=== PATIENT | female | born 1940 | race Caucasian/White ===

== ENCOUNTER 2017-07-11 08:35 | Day surgery (SDC) | payer MEDICARE, BC ==
[2017-07-11] MEDS ORDERED: fentaNYL 100 MCG/2 ML SDV ONE (09:03)
[2017-07-11] MEDS ORDERED: Propofol 200 MG/20 ML SDV ONE (09:03)
[2017-07-11] MEDS ORDERED: Lactated Ringers 1,000 ML IV SCH (09:15)
--- NOTE | 2017-07-11 10:38 | OR ---
DATE OF PROCEDURE: 07/11/2017 PREOPERATIVE DIAGNOSES: Upper abdominal discomfort, bloating, and weight loss. POSTOPERATIVE DIAGNOSES: Upper abdominal discomfort, bloating, weight loss, and mild gastritis. PROCEDURES: Esophagogastroduodenoscopy with antral biopsies for CLOtest, sent for pathology to look for Helicobacter pylori. SURGEON: Maico Archibald MD. ANESTHESIA: IV anesthesia with monitored anesthesia care. INDICATION: This 77-year-old white female is referred for upper endoscopy because of bloating, weight loss, and upper abdominal discomfort. She does note also some reflux-type symptoms, but that does not seem to be her main concern. I counseled her for upper endoscopy with possible biopsy including risks and alternatives, and she gave her informed consent to proceed. DESCRIPTION OF PROCEDURE: The patient was placed in the left lateral decubitus position. IV anesthesia was administered by the Anesthesia Service. Time-out was held. The flexible video Olympus upper endoscope was passed through her mouth, down her esophagus, and into her stomach. There was some scattered old blood present. This was very minimal. Etiology of this is unknown. The scope was easily passed through the pylorus and into the duodenum, reaching its third portion. The scope was then slowly withdrawn, examining the mucosa throughout. The duodenal mucosa appeared unremarkable. The scope was brought up to the pylorus. There was some mild erythematous streaking emanating from the pylorus consistent with mild gastritis. We obtained antral biopsies for CLOtest and sent tissue for pathology to look for Helicobacter pylori. The scope was retroflexed. The proximal stomach, otherwise, appeared unremarkable. The scope was straightened and brought up through the GE junction. This appeared unremarkable. The scope was then brought up through the unremarkable- appearing esophagus and was removed. She tolerated the procedure well. Maico Archibald MD /[id number] MTDD
[2017-07-11 10:41] VITALS: BP 122/70
== END 2017-07-11 10:50 | disposition home or self-care (01) ==
LOC: JP.SDS 08:35
PROVIDERS: ATTEND Surgery
DX: K29.50 Unspecified chronic gastritis without bleeding (principal); Z88.2 Allergy status to sulfonamides; Z88.6 Allergy status to analgesic agent
CPT/HCPCS: 43239; 87081; J2704; J3010; J7120; 88305

== ENCOUNTER 2017-08-27 12:39 | Day surgery (SDC) | payer MEDICARE, BC ==
[~2017-08-27 12:39] MED LIST: Lactated Ringers 1,000 ML IV SCH
[2017-08-27] MEDS ORDERED: Midazolam 1 MG/ML 2 ML SDV ONE (12:58)
[2017-08-27] MEDS ORDERED: Propofol 200 MG/20 ML SDV ONE (12:58)
[2017-08-27] MEDS ORDERED: fentaNYL 100 MCG/2 ML SDV ONE (12:58)
[2017-08-27] MEDS ORDERED: Lactated Ringers 1,000 ML IV SCH (14:00)
[2017-08-27 15:39] VITALS: BP 120/64
--- NOTE | 2017-08-28 08:36 | OR ---
DATE OF PROCEDURE: 08/27/2017 PREOPERATIVE DIAGNOSES: Abnormal CAT scan, possible left colon versus sigmoid colon mass. POSTOPERATIVE DIAGNOSIS: Diverticulosis. No evidence of mass. PROCEDURE: Colonoscopy to the cecum. ANESTHESIA: IV anesthesia with monitored anesthesia care. INDICATION: This 77-year-old white female is here for a colonoscopy. She complained of some abdominal pain. CAT scan of her abdomen and pelvis showed a nonspecific lobulated mass in the left inguinal region. The findings may reflect an eccentric lesion off the wall of the descending colon. Adenopathy or other forms of tumor are not excluded. Complex fluid collection less likely. Recommended correlation with colonoscopy. Her last colonoscopic exam she says was about 7 years ago. I counseled her for a colonoscopy with possible biopsy and/or polypectomy including risks and alternatives, and she gave her informed consent to proceed. DESCRIPTION OF PROCEDURE: The patient was placed in the left lateral decubitus position. IV anesthesia was administered by the Anesthesia Service. Time-out was held. A rectal exam was performed, which was unremarkable. The flexible video Olympus colonoscope was introduced through her anus, up her rectum, and out her colon all way to the cecum. En route, we saw multiple left and sigmoid colon diverticula. There was no bleeding or inflammation associated with any of them. Once the cecum was reached, the scope was slowly withdrawn, examining the mucosa throughout. No additional mucosal abnormalities were noted. No mass nor mass effects were seen. The scope was retroflexed in the rectum with the distal rectum appearing unremarkable. The scope was straightened and removed. She tolerated the procedure well. Maico Archibald MD /[id number] MTDD
== END 2017-08-27 15:41 | disposition home or self-care (01) ==
LOC: JP.SDS 12:39
PROVIDERS: ATTEND Surgery
DX: K57.30 Diverticulosis of large intestine without perforation or abscess without bleeding (principal); Z88.1 Allergy status to other antibiotic agents; Z88.2 Allergy status to sulfonamides
CPT/HCPCS: 45378; J2250; J2704; J3010; J7120

== ENCOUNTER 2017-11-12 04:48 | Emergency (ER) | payer MEDICARE, BC ==
[2017-11-12] MEDS ORDERED: Phenazopyridine 95 MG Tab ONE (05:33)
[2017-11-12] MEDS ORDERED: Ciprofloxacin 500 MG Tab ONE (05:33)
[2017-11-12] MEDS ORDERED: Phenazopyridine 95 MG Tab PO ONE (05:35)
[2017-11-12] MEDS ORDERED: Ciprofloxacin 500 MG Tab PO SCH (05:35)
[2017-11-12 07:01] VITALS: BP 165/82
--- NOTE | 2017-11-12 07:23 | EDM.PDOC ---
ED HPI GENERAL MEDICAL PROBLEM - General Chief Complaint: Genitourinary Problem Stated Complaint: BLADDER ISSUES Time Seen by Provider: 11/12/17 05:00 Source of Information: Reports: Patient, RN Notes Reviewed History Limitations: Reports: Other (Computer downtime) - History of Present Illness INITIAL COMMENTS - FREE TEXT/NARRATIVE: Here with her Chief complaint Painful urination, bloody urine History of present illness For about half a day this 77-year-old female sent frequency and urgency and then tonight also had gross hematuria with dark red urine past. No fever or chills No nausea or vomiting No abdominal pain. 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 History of bladder infections previously no history of stones or hematuria - Related Data Allergies Allergy/AdvReac Type Severity Reaction Status Date / Time celecoxib [From Celebrex] Allergy Mild hives,rash Verified 08/27/17 13:01 Sulfa (Sulfonamide Allergy Unknown unknown Verified 08/27/17 13:01 Antibiotics) Home Meds: Home Meds Aspirin [Shaun Chewable Aspirin] 81 mg PO DAILY 07/13/13 [History] Ca Carbonate/Vitamin D3/Vit K [Calcium + D Soft Chewable Tab] 1 each PO BID [History] Cyanocobalamin (Vitamin B-12) [Cyanocobalamin Injection] 1,000 mcg IM ASDIRECTED 07/13/13 [History] Metoprolol Succinate [Metoprolol Succinate] 25 mg PO DAILY 10/10/16 [History] Cevimeline [Evoxac] 30 mg PO TID 04/24/17 [History] Acetaminophen [Tylenol Arthritis Pain] 650 mg PO DAILY PRN 07/09/17 [History] Ammonium Lactate [Lac-Hydrin 12% Crm] 1 applic TOP BID 07/09/17 [History] Loratadine [Claritin] 10 mg PO DAILY 07/09/17 [History] Ciprofloxacin [Ciprofloxacin HCl] 250 mg PO BID #10 tablet 11/12/17 [Rx] Phenazopyridine HCl [Pyridium] 200 mg PO TID PRN #6 tablet 11/12/17 [Rx] atorvaSTATin [Lipitor] 10 mg PO DAILY 11/12/17 [History] Past Medical History HEENT History: Reports: Impaired Vision, Other (See Below) Other HEENT History: Dry mouth Cardiovascular History: Reports: Afib, High Cholesterol, Other (See Below) Other Cardiovascular History: echocardiogram Gastrointestinal History: Reports: GERD, Irritable Bowel Syndrome Genitourinary History: Reports: None 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 Psychiatric History: Reports: Anxiety Hematologic History: Reports: B12 Deficiency Immunologic History: Reports: None, Other (See Below) Other Immunologic History: Shilgren's disease - Infectious Disease History Infectious Disease History: Reports: Measles - Past Surgical History Head Surgeries/Procedures: Reports: None HEENT Surgical History: Reports: Adenoidectomy, Tonsillectomy Cardiovascular Surgical History: Reports: None GI Surgical History: Reports: Cholecystectomy, Colonoscopy, EGD, Hernia Repair/ Other Female Surgical History: Reports: Hysterectomy Neurological Surgical History: Reports: None Musculoskeletal Surgical History: Reports: None Dermatological Surgical History: Reports: None Social & Family History - Family History Family Medical History: Unobtainable - Tobacco Use Smoking Status *Q: Never Smoker Years of Tobacco use: 10 Used Tobacco, but Quit: Yes Month Tobacco Last Used: 1975 Second Hand Smoke Exposure: No - Caffeine Use Caffeine Use: Reports: None - Alcohol Use Days Per Week of Alcohol Use: 1 Number of Drinks Per Day: 1 Total Drinks Per Week: 1 - Recreational Drug Use Recreational Drug Use: No - Living Situation & Occupation Living situation: Reports: , with Spouse Occupation: Retired ED ROS GENERAL - Review of Systems Review Of Systems: See Below Constitutional: Reports: Fatigue, Decreased Appetite, Other (Sleep disturbance) . Denies: Fever, Chills HEENT: Reports: Other Respiratory: Reports: No Symptoms Cardiovascular: Reports: No Symptoms GI/Abdominal: Reports: No Symptoms : Reports: Dysuria, Frequency, Hematuria, Urgency. Denies: Flank Pain Musculoskeletal: Reports: Joint Pain Skin: Reports: No Symptoms Neurological: Reports: Paresthesia. Denies: Dizziness, Headache Psychiatric: Reports: Anxiety ED EXAM, RENAL/ - Physical Exam Exam: See Below Exam Limited By: No Limitations General Appearance: Anxious, Mild Distress, Other (Elevated blood pressure but otherwise vital signs normal, no difficulty speaking or breathing) Eye Exam: Bilateral Eye: Normal Inspection Ears: Normal External Exam Nose: Normal Inspection Throat/Mouth: Normal Inspection Head: Atraumatic Respiratory/Chest: No Respiratory Distress, No Accessory Muscle Use Cardiovascular: Normal Peripheral Pulses, Regular Rate, Rhythm GI/Abdominal: Normal Bowel Sounds, Soft, Non-Tender, No Distention Extremities: Normal Inspection Neurological: Alert, No Motor/Sensory Deficits Psychiatric: Anxious Skin Exam: Warm, Dry, Normal Color, No Rash Course - Vital Signs Last Recorded V/S: Last Vital Signs Temp 36.2 C 11/12/17 04:52 Pulse 99 11/12/17 04:52 Resp 16 11/12/17 04:52 BP 165/82 H 11/12/17 04:52 Pulse Ox 98 11/12/17 04:52 - Orders/Labs/Meds Orders: Active Orders 24 hr Category Date Time Status CULTURE URINE [RM] Stat Lab 11/12/17 07:26 Ordered Labs: Laboratory Tests 11/12/17 Range/Units 05:00 Urine Color Red Urine Appearance Turbid Urine pH 7.0 (4.5-8.0) Ur Specific [place] 1.015 (1.008-1.030) Urine Protein 500 H (NEGATIVE) mg/dL Urine Glucose (UA) 50 H (NEGATIVE) mg/dL Urine Ketones 15 H (NEGATIVE) mg/dL Urine Occult Blood Large (NEGATIVE) Urine Nitrite Negative (NEGATIVE) Urine Bilirubin Negative (NEGATIVE) Urine Urobilinogen Normal (NORMAL) mg/dL Ur Leukocyte Esterase Large (NEGATIVE) - Re-Assessments/Exams Free Text/Narrative Re-Assessment/Exam: 11/12/17 07:25 77-year-old female with dysuria frequency and hematuria. Urinalysis is obscured by hematuria, some leukocyte esterases present. Symptoms most suggestive of infection Pyridium 190 mg by mouth and ciprofloxacin 250 mg by mouth given Urine culture pending Departure - Departure Time of Disposition: 06:40 Disposition: Home, Self-Care 01 Condition: Good Clinical Impression: Cystitis with hematuria - Discharge Information Prescriptions: Ciprofloxacin [Ciprofloxacin HCl] 250 mg PO BID #10 tablet Phenazopyridine HCl [Pyridium] 200 mg PO TID PRN #6 tablet PRN Reason: Painful urination Referrals: PCP,None [Primary Care Provider] - Forms: ED Department Discharge Additional Instructions: Follow-up primary care to recheck urine even if it appears to be totally clear Get seen sooner if vomiting fever or worsening symptoms - My Orders Last 24 Hours: My Active Orders 11/12/17 07:26 CULTURE URINE [RM] Stat - Assessment/Plan Last 24 Hours: My Active Orders 11/12/17 07:26 CULTURE URINE [] Stat
== END 2017-11-12 05:40 | disposition home or self-care (01) ==
LOC: JP.ED 04:48
DX: N30.91 Cystitis, unspecified with hematuria (principal); I48.91 Unspecified atrial fibrillation; K21.9 Gastro-esophageal reflux disease without esophagitis; E78.00 Pure hypercholesterolemia, unspecified; Z79.82 Long term (current) use of aspirin; Z88.2 Allergy status to sulfonamides; Z88.1 Allergy status to other antibiotic agents
CPT/HCPCS: 81003; 87086; 87088; 87186; 99284; A9270

== ENCOUNTER 2020-07-10 13:24 | Emergency (ER) | payer MEDICARE, BC ==
[2020-07-10 14:49] VITALS: BP 176/78; PULSE 73
--- NOTE | 2020-07-10 15:34 | EDM.PDOC ---
ED HPI GENERAL MEDICAL PROBLEM - General Chief Complaint: Cardiovascular Problem Stated Complaint: HEART ISSUES Time Seen by Provider: 07/10/20 15:34 Source of Information: Reports: Patient, RN - History of Present Illness INITIAL COMMENTS - FREE TEXT/NARRATIVE: Alert Pleasant 80 year old female presents to ID ER for evaluation palpitations/rapid heart beat around 7 am after her walk with dog. Chery gets up around 6am daily and immediately lets the dog out then takes him for a walk before eating breakfast or taking her medications. Chery has been on Metoprolol 25mg for intermittent a fib for a number of years. Chery has never had a symptomatic episode of a fib in the past. Chery felt heart pounding, shortness of breath and a bit lightheaded symptoms quickly resolved this am without recurrence. Chery went inside to get her phone, sat down and called [facility] Nurse-Line. Chery had not had recurrent symptoms after this am and was told by nursing line to call 911 and present to ER for evaluation. Chery is otherwise feeling well at this time with no other symptoms this am or concerns. Chery has known heart valve regurge which is follow-up by cardiology with yearly echocardiogram. Chery's cardiology appointment is in the next 2 weeks with follow-up appointment. - Related Data Allergies Allergy/AdvReac Type Severity Reaction Status Date / Time celecoxib [From Celebrex] Allergy Mild hives,rash Verified 07/10/20 14:49 Sulfa (Sulfonamide Allergy Unknown unknown Verified 07/10/20 14:49 Antibiotics) Home Meds: Home Meds Aspirin [Shaun Chewable Aspirin] 81 mg PO DAILY 07/13/13 [History] Calcium Carb/Vitamin D3/Vit K1 [Calcium + D Soft Chewable Tab] 1 each PO BID 07/13/13 [History] Cyanocobalamin (Vitamin B-12) [Cyanocobalamin Injection] 1,000 mcg IM ASDIRECTED 07/13/13 [History] Metoprolol Succinate 25 mg PO DAILY 10/10/16 [History] Cevimeline [Evoxac] 30 mg PO TID 04/24/17 [History] Loratadine [Claritin] 10 mg PO DAILY PRN 07/09/17 [History] atorvaSTATin [Lipitor] 10 mg PO DAILY 11/12/17 [History] Gabapentin 9 ml PO Q8H 03/23/18 [History] Acetaminophen [Acetaminophen Extra Strength] 500 mg PO BID PRN 07/19/19 [History] Alendronate Sodium [Fosamax] 70 mg PO Q7D 07/19/19 [History] Past Medical History HEENT History: Reports: Impaired Vision, Other (See Below) Other HEENT History: Dry mouth Cardiovascular History: Reports: Afib, High Cholesterol, Other (See Below) Other Cardiovascular History: echocardiogram Gastrointestinal History: Reports: GERD, Irritable Bowel Syndrome Genitourinary History: Reports: None 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 Psychiatric History: Reports: Anxiety Hematologic History: Reports: B12 Deficiency Immunologic History: Reports: None, Other (See Below) Other Immunologic History: Shilgren's disease - Infectious Disease History Infectious Disease History: Reports: Measles - Past Surgical History Head Surgeries/Procedures: Reports: None HEENT Surgical History: Reports: Adenoidectomy, Tonsillectomy Cardiovascular Surgical History: Reports: None GI Surgical History: Reports: Cholecystectomy, Colonoscopy, EGD, Hernia Repair/Other Female Surgical History: Reports: Hysterectomy Neurological Surgical History: Reports: None Musculoskeletal Surgical History: Reports: None Dermatological Surgical History: Reports: None Social & Family History - Family History Family Medical History: Unobtainable - Tobacco Use Smoking Status *Q: Never Smoker - Caffeine Use Caffeine Use: Reports: None - Living Situation & Occupation Living situation: Reports: , with Spouse Occupation: Retired ED ROS GENERAL - Review of Systems Review Of Systems: Comprehensive ROS is negative, except as noted in HPI. ED EXAM, GENERAL - Physical Exam Exam: See Below Exam Limited By: No Limitations General Appearance: Alert, WD/WN, No Apparent Distress Eye Exam: Bilateral Eye: EOMI Ears: Normal External Exam, Hearing Grossly Normal Nose: Normal Inspection, Normal Mucosa Throat/Mouth: Normal Inspection Head: Normocephalic Neck: Normal Inspection, Non-Tender, Full Range of Motion Respiratory/Chest: No Respiratory Distress, Lungs Clear, Normal Breath Sounds, Chest Non-Tender Cardiovascular: Normal Peripheral Pulses, Regular Rate, Rhythm, Systolic Murmur, Other (elevated blood pressure reading x 2 recheck 172/74 ). No: No Murmur GI/Abdominal: Soft, Non-Tender Extremities: Normal Inspection, Normal Range of Motion, Non-Tender. No: Pedal Edema Neurological: Alert, Oriented, CN II-XII Intact, Normal Cognition, Normal Gait, No Motor/Sensory Deficits Psychiatric: Normal Affect, Normal Mood Skin Exam: Warm, Dry, Intact, Normal Color, No Rash EKG INTERPRETATION EKG Date: 07/10/20 Time: 16:17 Rhythm: NSR Rate (Beats/Min): 60 [place]: RAD-Right [place] Deviation P-Wave: Present QRS: Normal ST-T: Normal QT: Normal Course - Vital Signs Last Recorded V/S: Last Vital Signs Temp 36.1 C 07/10/20 14:47 Pulse 73 07/10/20 14:47 Resp 20 07/10/20 14:47 BP 176/78 H 07/10/20 14:47 Pulse Ox 99 07/10/20 14:47 - Orders/Labs/Meds Orders: Active Orders 24 hr Category Date Time Status Cardiac Monitoring [RC] .As Directed Care 07/10/20 15:32 Active EKG Documentation Completion [RC] ASDIRECTED Care 07/10/20 15:33 Active Chest 2V [CR] Stat Exams 07/10/20 15:33 Taken MAGNESIUM [CHEM] Stat Lab 07/10/20 16:21 Received EKG 12 Lead [EK] Urgent Ther 07/10/20 15:32 Ordered Labs: Laboratory Tests 07/10/20 07/10/20 07/10/20 Range/Units 15:50 15:50 15:50 WBC 8.2 (4.5-11.0) K/uL RBC 4.60 (3.30-5.50) M/uL Hgb 13.6 (12.0-15.0) g/dL Hct 42.2 (36.0-48.0) % MCV 92 (80-98) fL MCH 30 (27-31) pg MCHC 32 (32-36) % Plt Count 297 (150-400) K/uL Neut % (Auto) 68 H (36-66) % Lymph % (Auto) 24 (24-44) % [place] % (Auto) 8 H (2-6) % Eos % (Auto) 0 L (2-4) % Baso % (Auto) 1 (0-1) % Sodium 139 L (140-148) mmol/L Potassium 3.9 (3.6-5.2) mmol/L Chloride 102 (100-108) mmol/L Carbon Dioxide 27 (21-32) mmol/L Anion Gap 13.9 (5.0-14.0) mmol/L BUN 14 (7-18) mg/dL Creatinine 1.0 (0.6-1.0) mg/dL Est Cr Clr Drug Dosing 36.08 mL/min Estimated GFR (MDRD) 53 L (>60) Glucose 105 (74-106) mg/dL Calcium 9.4 (8.5-10.1) mg/dL Total Bilirubin 0.3 (0.2-1.0) mg/dL AST 24 (15-37) U/L ALT 23 (12-78) U/L Alkaline Phosphatase 47 (46-116) U/L Troponin I < 0.017 (0.000-0.056) ng/mL Total Protein 7.7 (6.4-8.2) g/dL Albumin 3.8 (3.4-5.0) g/dL Globulin 3.9 H (2.3-3.5) g/dL Albumin/Globulin Ratio 1.0 L (1.2-2.2) TSH, Ultra Sensitive 1.882 (0.358-3.740) uIU/mL - Radiology Interpretation Free Text/Narrative:: CXR PA/LAT: hyperaeration noted. No acute cardiopulmonary findings. Normal cardiac silhouette. - Re-Assessments/Exams Free Text/Narrative Re-Assessment/Exam: Examination completed without acute concerning findings noted. EKG reviewed NSR. HR 60s at this time. Known history of fatigue with Metoprolol use with very low HR normally. Chery reports SBP normally 110-120. Called [facility] pharmacy to verify patient's metoprolol medication which is 25mg ER daily. Correct dosing and formulary for longer term daily use. 07/10/20 16:27 Departure - Departure Time of Disposition: 16:37 Disposition: Home, Self-Care 01 Clinical Impression: Palpitations, Atrial fib/flutter, transient Instructions: Atrial Fibrillation, Palpitations, Hypertension, Adult, Preventing Hypertension Referrals: Pauly Sanchez PA-C [Primary Care Provider] - Forms: ED Department Discharge Additional Instructions: 1. Change Metoprolol ER dosing time to night time due decreased in medication early am with typical increased activity first thing in am. 2. Follow-up with cardiology in the next 1-2 weeks as planned for echocardiogram and medication recommendations. 3. Monitor symptoms over the next 2 weeks. Information regarding A fib and elevated blood pressure given for review. 4. Blood pressure check at various ties for the next 2 weeks to bring to PCP/Fertilizer Loader to discuss need for additional treatment or if elevated blood pressure today situations. 5. Sepsis Event Note (ED) - Evaluation Sepsis Screening Result: No Definite Risk - Focused Exam Vital Signs: Vital Signs Temp Pulse Resp BP Pulse Ox 07/10/20 14:47 36.1 C 73 20 176/78 H 99 - My Orders Last 24 Hours: My Active Orders 07/10/20 15:32 Cardiac Monitoring [RC] .As Directed EKG 12 Lead [EK] Urgent 07/10/20 15:33 EKG Documentation Completion [RC] ASDIRECTED Chest 2V [CR] Stat 07/10/20 16:21 MAGNESIUM [CHEM] Stat - Assessment/Plan Last 24 Hours: My Active Orders 07/10/20 15:32 Cardiac Monitoring [RC] .As Directed EKG 12 Lead [EK] Urgent 07/10/20 15:33 EKG Documentation Completion [RC] ASDIRECTED Chest 2V [CR] Stat 07/10/20 16:21 MAGNESIUM [CHEM] Stat
--- NOTE | 2020-07-11 09:10 | CR ---
CHEST: 2 view CLINICAL HISTORY:Palpitations COMPARISON:2016 FINDINGS: Lungs are hyperaerated. There is mild generalized interstitial prominence in the perihilar and lower lungs. This is felt to be chronic. There are atherosclerotic changes in the aorta. Heart size and pulmonary vascularity is normal. Impression: Changes of COPD No acute cardiopulmonary process
== END 2020-07-10 16:58 | disposition home or self-care (01) ==
LOC: JP.ED 13:24
DX: I48.92 Unspecified atrial flutter (principal); Z59.0 Homelessness; R03.0 Elevated blood-pressure reading, without diagnosis of hypertension; E78.00 Pure hypercholesterolemia, unspecified; Z88.2 Allergy status to sulfonamides; Z88.1 Allergy status to other antibiotic agents; Z79.82 Long term (current) use of aspirin; Z79.899 Other long term (current) drug therapy; Z90.49 Acquired absence of other specified parts of digestive tract; Z90.710 Acquired absence of both cervix and uterus
CPT/HCPCS: 36415; 71046; 71046-26; 80053; 83735; 84443; 84484; 85025; 93005; 93010; 99285-25

== ENCOUNTER → 2022-08-01 | Day surgery (SDC) | payer MEDICARE, BC ==
[~2022-08-01] MED LIST changes: +Dextrose 5%-Lactated Ringers 1,000 ML IV SCH; -Lactated Ringers 1,000 ML IV SCH; +Propofol 200 MG/20 ML SDV ONE
== END ==
LOC: JP.SDS 06:00
PROVIDERS: ATTEND Surgery
DX: K21.00 Gastro-esophageal reflux disease with esophagitis, without bleeding (principal); K44.9 Diaphragmatic hernia without obstruction or gangrene; E78.00 Pure hypercholesterolemia, unspecified; N18.9 Chronic kidney disease, unspecified; Z79.899 Other long term (current) drug therapy; Z88.0 Allergy status to penicillin; Z88.6 Allergy status to analgesic agent
CPT/HCPCS: 43239; 87081; 88305; J2704; J7121

== ENCOUNTER 2023-04-15 09:55 | Emergency (ER) | payer MEDICARE, BC ==
[2023-04-15 11:35] VITALS: BP 138/62; PULSE 76
== END 2023-04-15 11:34 | disposition home or self-care (01) ==
LOC: JP.ED 09:55
DX: S09.90XA Unspecified injury of head, initial encounter (principal); I48.91 Unspecified atrial fibrillation; K21.9 Gastro-esophageal reflux disease without esophagitis; E78.00 Pure hypercholesterolemia, unspecified; Z79.82 Long term (current) use of aspirin; Z88.2 Allergy status to sulfonamides; Z88.8 Allergy status to other drugs, medicaments and biological substances; Z79.899 Other long term (current) drug therapy; Z87.891 Personal history of nicotine dependence; X50.0XXA Overexertion from strenuous movement or load, initial encounter
CPT/HCPCS: 99283

== ENCOUNTER 2023-10-04 11:50 | Emergency (ER) | payer MEDICARE, BC ==
[2023-10-04 12:49] LABS: BASOPHILS ABSOLUTE AUTO 0.05 K/uL (0.00-0.10); BASOPHILS PERCENT AUTO 0.7 % (0.1-1.3); EOSINOPHILS ABSOLUTE AUTO 0.04 K/uL (0.00-0.40); EOSINOPHILS PERCENT AUTO 0.5 % (0.0-5.4); HEMATOCRIT 41.3 % (34.3-46.0); HEMOGLOBIN 13.7 g/dL (11.2-15.5); IMMATURE GRAN PERCENT AUTO 0.1 % (0.0-0.7); LYMPHOCYTES ABSOLUTE AUTO 1.18 K/uL (0.8-3.3); LYMPHOCYTES PERCENT AUTO 15.8 % (11.4-47.7); MEAN CORPUSCULAR HEMOGLOBIN 29.5 pg (31.6-35.5); MEAN CORPUSCULAR HGB CONC 33.2 g/dL (31.6-35.5); MEAN CORPUSCULAR VOLUME 88.8 fL (81.4-99.0); MONOCYTES ABSOLUTE AUTO 0.49 K/uL (0.20-0.90); MONOCYTES PERCENT AUTO 6.6 % (3.3-12.6); NEUTROPHILS ABSOLUTE AUTO 5.69 K/uL (1.0-7.6); NEUTROPHILS PERCENT AUTO 76.3 % (40.0-78.1); PLATELET COUNT,PLT 247 K/uL (130-375); RED BLOOD CELL COUNT 4.65 M/uL (3.77-5.24); WHITE BLOOD CELL COUNT,WBC 7.5 K/uL (3.2-11.0)
[2023-10-04 12:51] LABS: IMMATURE GRAN ABSOLUTE AUTO 0.01 K/uL (0.00-0.23)
[2023-10-04 13:14] LABS: BLOOD UREA NITROGEN,BUN 15 mg/dL (7-18); CALCIUM 8.9 mg/dL (8.5-10.1); CARBON DIOXIDE,CO2 27 mmol/L (21-32); CHLORIDE,CL 100 mmol/L (100-108); ESTIMATED GFR 56 mL/min (>60); GLUCOSE RANDOM 106 mg/dL (74-106); MAGNESIUM 2.1 mg/dL (1.8-2.4); POTASSIUM,K 3.9 mmol/L (3.6-5.2); SODIUM,NA 137 mmol/L (140-148); TROPONIN I HIGH SENSITIVITY 27.9 pg/mL (<=60.3)
[2023-10-04 13:20] LABS: ANION GAP 13.9 mmol/L (5.0-14.0)
[2023-10-04 13:30] VITALS: BP 131/55; PULSE 61
== END 2023-10-04 14:15 | disposition home or self-care (01) ==
LOC: JP.ED 11:50
DX: R00.2 Palpitations (principal); E78.00 Pure hypercholesterolemia, unspecified; K21.9 Gastro-esophageal reflux disease without esophagitis; Z79.899 Other long term (current) drug therapy; Z88.2 Allergy status to sulfonamides; Z79.82 Long term (current) use of aspirin
CPT/HCPCS: 36415; 80048; 83735; 84484; 85025; 93005; 99285

== ENCOUNTER 2023-11-13 15:58 | Emergency (ER) | payer MEDICARE, BC ==
[2023-11-13 17:18] LABS: BASOPHILS ABSOLUTE AUTO 0.06 K/uL (0.00-0.10); BASOPHILS PERCENT AUTO 0.6 % (0.1-1.3); EOSINOPHILS PERCENT AUTO 0.2 % (0.0-5.4); HEMATOCRIT 42.3 % (34.3-46.0); HEMOGLOBIN 14.2 g/dL (11.2-15.5); IMMATURE GRAN PERCENT AUTO 0.2 % (0.0-0.7); LYMPHOCYTES ABSOLUTE AUTO 1.77 K/uL (0.8-3.3); LYMPHOCYTES PERCENT AUTO 18.8 % (11.4-47.7); MEAN CORPUSCULAR HEMOGLOBIN 29.2 pg (31.6-35.5); MEAN CORPUSCULAR HGB CONC 33.6 g/dL (31.6-35.5); MONOCYTES ABSOLUTE AUTO 0.56 K/uL (0.20-0.90); NEUTROPHILS ABSOLUTE AUTO 6.97 K/uL (1.0-7.6); NEUTROPHILS PERCENT AUTO 74.2 % (40.0-78.1); PLATELET COUNT,PLT 266 K/uL (130-375); RED BLOOD CELL COUNT 4.86 M/uL (3.77-5.24); WHITE BLOOD CELL COUNT,WBC 9.4 K/uL (3.2-11.0)
[2023-11-13 17:20] LABS: EOSINOPHILS ABSOLUTE AUTO 0.02 K/uL (0.00-0.40); IMMATURE GRAN ABSOLUTE AUTO 0.02 K/uL (0.00-0.23)
[2023-11-13 17:32] LABS: ANION GAP 13.2 mmol/L (5.0-14.0); CALCIUM 9.3 mg/dL (8.5-10.1); CREATININE 0.9 mg/dL (0.6-1.0); POTASSIUM,K 3.6 mmol/L (3.6-5.2)
[2023-11-13 18:02] LABS: CORONAVIRUS COVID-19 NAA NEGATIVE (NEGATIVE); INFLUENZA A NAA NEGATIVE (NEGATIVE); INFLUENZA B NAA NEGATIVE (NEGATIVE); RESPIRATORY SYNCYTIAL VIR NAA NEGATIVE (NEGATIVE)
[2023-11-13 18:10] VITALS: BP 151/61; PULSE 64
== END 2023-11-13 18:40 | disposition home or self-care (01) ==
LOC: JP.ED 15:58
DX: R06.02 Shortness of breath (principal); K21.9 Gastro-esophageal reflux disease without esophagitis; Z88.2 Allergy status to sulfonamides; Z88.8 Allergy status to other drugs, medicaments and biological substances; Z79.82 Long term (current) use of aspirin; Z79.899 Other long term (current) drug therapy; Z90.49 Acquired absence of other specified parts of digestive tract; Z90.710 Acquired absence of both cervix and uterus; Z79.2 Long term (current) use of antibiotics
CPT/HCPCS: 0241U; 36415; 71045; 80048; 85025; 93005; 93010; 99284; 99285

== ENCOUNTER 2023-12-05 10:35 | Emergency (ER) | payer MEDICARE, BC ==
[2023-12-05 10:54] LABS: BASOPHILS ABSOLUTE AUTO 0.06 K/uL (0.00-0.10); BASOPHILS PERCENT AUTO 1.1 % (0.1-1.3); EOSINOPHILS ABSOLUTE AUTO 0.03 K/uL (0.00-0.40); EOSINOPHILS PERCENT AUTO 0.5 % (0.0-5.4); HEMATOCRIT 42.5 % (34.3-46.0); HEMOGLOBIN 14.1 g/dL (11.2-15.5); IMMATURE GRAN PERCENT AUTO 0.2 % (0.0-0.7); LYMPHOCYTES ABSOLUTE AUTO 1.47 K/uL (0.8-3.3); LYMPHOCYTES PERCENT AUTO 26.4 % (11.4-47.7); MEAN CORPUSCULAR HEMOGLOBIN 29.4 pg (31.6-35.5); MEAN CORPUSCULAR HGB CONC 33.2 g/dL (31.6-35.5); MEAN CORPUSCULAR VOLUME 88.5 fL (81.4-99.0); MONOCYTES ABSOLUTE AUTO 0.53 K/uL (0.20-0.90); MONOCYTES PERCENT AUTO 9.5 % (3.3-12.6); NEUTROPHILS ABSOLUTE AUTO 3.46 K/uL (1.0-7.6); NEUTROPHILS PERCENT AUTO 62.3 % (40.0-78.1); PLATELET COUNT,PLT 265 K/uL (130-375); WHITE BLOOD CELL COUNT,WBC 5.6 K/uL (3.2-11.0)
[2023-12-05 10:56] LABS: BASE EXCESS VENOUS 1.4 mm/L; CARBOXYHEMOGLOBIN 2.7 % (0.0-1.6); IMMATURE GRAN ABSOLUTE AUTO 0.01 K/uL (0.00-0.23); METHEMOGLOBIN 0.8 %; O2 SATURATION VENOUS 86.4; OXYHEMOGLOBIN 83.4 %; PCO2 VENOUS 38.1 mm/Hg; PH,VENOUS 7.432 (7.350-7.450); PO2 VENOUS 53.3 mm/Hg; TOTAL HEMOGLOBIN 14.7 g/dL (12.0-16.0)
[2023-12-05 11:13] LABS: PROTHROMBIN TIME 10.2 sec (9.2-10.6)
[2023-12-05 11:33] LABS: CORONAVIRUS COVID-19 NAA NEGATIVE (NEGATIVE); INFLUENZA A NAA NEGATIVE (NEGATIVE); INFLUENZA B NAA NEGATIVE (NEGATIVE); RESPIRATORY SYNCYTIAL VIR NAA NEGATIVE (NEGATIVE)
[2023-12-05 11:36] LABS: A/G RATIO 0.8 (1.2-2.2); ALANINE AMINOTRANSFERASE,ALT 29 U/L (12-78); ALBUMIN 3.5 g/dL (3.4-5.0); ALKALINE PHOSPHATASE 59 U/L (46-116); ASPARTATE AMNIOTRANSFERASE,AST 27 U/L (15-37); BILIRUBIN TOTAL 0.4 mg/dL (0.2-1.0); BLOOD UREA NITROGEN,BUN 18 mg/dL (7-18); CALCIUM 8.6 mg/dL (8.5-10.1); CARBON DIOXIDE,CO2 28 mmol/L (21-32); CHLORIDE,CL 101 mmol/L (100-108); CREATININE 0.9 mg/dL (0.6-1.0); EST CRCL DRUG DOSING (CG) 35.54 mL/min; ESTIMATED GFR 64 mL/min (>60); GLUCOSE RANDOM 108 mg/dL (74-106); POTASSIUM,K 4.1 mmol/L (3.6-5.2); PRO B-TYPE NATRIUR PEPT,BNPPRO 153 pg/mL (5-450); PROTEIN TOTAL,TP 7.8 g/dL (6.4-8.2); SODIUM,NA 138 mmol/L (140-148); TROPONIN I HIGH SENSITIVITY 19.2 pg/mL (<=60.3)
[2023-12-05 11:39] LABS: ANION GAP 13.1 mmol/L (5.0-14.0)
[2023-12-05] MEDS: Iopamidol 755 Mg/ML 100 ML Bottle IV SCH (12:57)
[2023-12-05] MEDS: Sodium Chloride 0.9% 10 ML Syringe FLUSH PRN (12:57)
[2023-12-05] MEDS: Sodium Chloride 0.9% 100 ML IV ONE (12:57)
[2023-12-05 15:01] VITALS: BP 146/66; PULSE 60
== END 2023-12-05 15:50 | disposition home or self-care (01) ==
LOC: JP.ED 10:35
DX: F41.9 Anxiety disorder, unspecified (principal); R07.9 Chest pain, unspecified; E78.00 Pure hypercholesterolemia, unspecified; K21.9 Gastro-esophageal reflux disease without esophagitis; Z79.82 Long term (current) use of aspirin; Z88.8 Allergy status to other drugs, medicaments and biological substances; Z88.2 Allergy status to sulfonamides; Z79.899 Other long term (current) drug therapy
CPT/HCPCS: 0241U; 36415; 71045; 71275; 80053; 82803; 83605; 83880; 84484; 85025; 85379; 85610; 93005; 99285; J3490; Q9967

== ENCOUNTER 2024-09-29 03:12 | Emergency (ER) | payer MEDICARE, BC ==
[2024-09-29 03:41] LABS: BASOPHILS ABSOLUTE AUTO 0.07 K/uL (0.00-0.10); BASOPHILS PERCENT AUTO 0.9 % (0.1-1.3); EOSINOPHILS ABSOLUTE AUTO 0.08 K/uL (0.00-0.40); EOSINOPHILS PERCENT AUTO 1.1 % (0.0-5.4); HEMATOCRIT 41.5 % (34.3-46.0); HEMOGLOBIN 13.9 g/dL (11.2-15.5); IMMATURE GRAN PERCENT AUTO 0.3 % (0.0-0.7); LYMPHOCYTES ABSOLUTE AUTO 2.22 K/uL (0.8-3.3); LYMPHOCYTES PERCENT AUTO 29.2 % (11.4-47.7); MEAN CORPUSCULAR HEMOGLOBIN 30.2 pg (31.6-35.5); MEAN CORPUSCULAR HGB CONC 33.5 g/dL (31.6-35.5); MEAN CORPUSCULAR VOLUME 90.2 fL (81.4-99.0); MONOCYTES ABSOLUTE AUTO 0.63 K/uL (0.20-0.90); MONOCYTES PERCENT AUTO 8.3 % (3.3-12.6); NEUTROPHILS ABSOLUTE AUTO 4.57 K/uL (1.0-7.6); NEUTROPHILS PERCENT AUTO 60.2 % (40.0-78.1); PLATELET COUNT,PLT 178 K/uL (130-375); WHITE BLOOD CELL COUNT,WBC 7.6 K/uL (3.2-11.0)
[2024-09-29 03:48] LABS: IMMATURE GRAN ABSOLUTE AUTO 0.02 K/uL (0.00-0.23)
[2024-09-29 04:02] LABS: CALCIUM 9.8 mg/dL (8.5-10.1); CREATININE 0.9 mg/dL (0.6-1.0); EST CRCL DRUG DOSING (CG) 35.27 mL/min; POTASSIUM,K 4.4 mmol/L (3.6-5.2); TROPONIN I HIGH SENSITIVITY 9.6 pg/mL (<=60.3)
[2024-09-29 04:03] LABS: ANION GAP 10.4 mmol/L (5.0-14.0)
[2024-09-29] MEDS: Alum Hydrox/Mag Hydrox/Simeth 15 ML, Lidocaine 2% 15 ML PO ONE (04:11)
[2024-09-29 05:49] VITALS: BP 124/48; PULSE 58
== END 2024-09-29 07:41 | disposition home or self-care (01) ==
LOC: JP.ED 03:12
DX: R07.2 Precordial pain (principal); K21.9 Gastro-esophageal reflux disease without esophagitis; Z90.49 Acquired absence of other specified parts of digestive tract; Z79.82 Long term (current) use of aspirin; Z79.899 Other long term (current) drug therapy; Z88.1 Allergy status to other antibiotic agents; Z88.2 Allergy status to sulfonamides
CPT/HCPCS: 36415; 71045; 80048; 84484; 85025; 93005; 99285; A9270

== ENCOUNTER 2025-01-26 17:55 | Emergency (ER) | payer MEDICARE, BC ==
[2025-01-26 18:34] LABS: BASOPHILS ABSOLUTE AUTO 0.08 K/uL (0.00-0.10); EOSINOPHILS ABSOLUTE AUTO 0.07 K/uL (0.00-0.40); EOSINOPHILS PERCENT AUTO 0.8 % (0.0-5.4); HEMATOCRIT 40.3 % (34.3-46.0); HEMOGLOBIN 13.4 g/dL (11.2-15.5); IMMATURE GRAN ABSOLUTE AUTO 0.03 K/uL (0.00-0.23); IMMATURE GRAN PERCENT AUTO 0.4 % (0.0-0.7); LYMPHOCYTES ABSOLUTE AUTO 2.05 K/uL (0.8-3.3); LYMPHOCYTES PERCENT AUTO 24.7 % (11.4-47.7); MEAN CORPUSCULAR HEMOGLOBIN 30.7 pg (31.6-35.5); MEAN CORPUSCULAR HGB CONC 33.3 g/dL (31.6-35.5); MEAN CORPUSCULAR VOLUME 92.4 fL (81.4-99.0); MONOCYTES ABSOLUTE AUTO 0.72 K/uL (0.20-0.90); MONOCYTES PERCENT AUTO 8.7 % (3.3-12.6); NEUTROPHILS ABSOLUTE AUTO 5.36 K/uL (1.0-7.6); NEUTROPHILS PERCENT AUTO 64.4 % (40.0-78.1); PLATELET COUNT,PLT 241 K/uL (130-375); RED BLOOD CELL COUNT 4.36 M/uL (3.77-5.24); WHITE BLOOD CELL COUNT,WBC 8.3 K/uL (3.2-11.0)
[2025-01-26 18:54] LABS: ALANINE AMINOTRANSFERASE,ALT 31 U/L (12-78); ALBUMIN 3.9 g/dL (3.4-5.0); ALKALINE PHOSPHATASE 59 U/L (46-116); ANION GAP 16.9 mmol/L (5.0-14.0); ASPARTATE AMNIOTRANSFERASE,AST 27 U/L (15-37); BILIRUBIN TOTAL 0.7 mg/dL (0.2-1.0); BLOOD UREA NITROGEN,BUN 14 mg/dL (7-18); C-REACTIVE PROTEIN <0.50 mg/dL (<0.50); CALCIUM 9.7 mg/dL (8.5-10.1); CARBON DIOXIDE,CO2 25 mmol/L (21-32); CHLORIDE,CL 101 mmol/L (100-108); CREATININE 0.9 mg/dL (0.6-1.0); EST CRCL DRUG DOSING (CG) 34.02 mL/min; ESTIMATED GFR 63 mL/min (>60); GLUCOSE RANDOM 104 mg/dL (74-106); POTASSIUM,K 3.9 mmol/L (3.6-5.2); PROTEIN TOTAL,TP 7.8 g/dL (6.4-8.2); SODIUM,NA 139 mmol/L (140-148)
[2025-01-26 19:54] LABS: APPEARANCE,URINE CLEAR (CLEAR); BILIRUBIN,URINE NEGATIVE (NEGATIVE); COLOR,URINE YELLOW (YELLOW); GLUCOSE,URINE NEGATIVE (NEGATIVE); KETONES,URINE NEGATIVE (NEGATIVE); LEUKOCYTE ESTERASE,URINE TRACE (NEGATIVE); NITRITE,URINE NEGATIVE (NEGATIVE); OCCULT BLOOD,URINE NEGATIVE (NEGATIVE); PROTEIN,URINE NEGATIVE (NEGATIVE); UROBILINOGEN,URINE 0.2 EU/dL (0.2-1.0)
[2025-01-26 20:02] LABS: AMORPHOUS SEDIMENT,URINE NOT SEEN; BACTERIA,URINE FEW; EPITHELIAL CELLS,URINE FEW; MUCUS,URINE NOT SEEN; RBC,URINE 0-5 (0-5); WBC,URINE 0-5 (0-5)
[2025-01-26 21:08] VITALS: BP 132/78; PULSE 74
== END 2025-01-26 21:00 | disposition home or self-care (01) ==
LOC: JP.ED 17:55
DX: F03.90 Unspecified dementia, unspecified severity, without behavioral disturbance, psychotic disturbance, mood disturbance, and anxiety (principal); Z88.2 Allergy status to sulfonamides; Z88.8 Allergy status to other drugs, medicaments and biological substances; Z79.899 Other long term (current) drug therapy; K21.9 Gastro-esophageal reflux disease without esophagitis; Z90.49 Acquired absence of other specified parts of digestive tract; Z90.710 Acquired absence of both cervix and uterus
CPT/HCPCS: 36415; 80053; 81001; 83605; 85025; 86140; 99284; 99285

== ENCOUNTER 2025-02-10 06:55 | Emergency (ER) | payer MEDICARE, BC ==
[2025-02-10 08:47] LABS: APPEARANCE,URINE CLEAR (CLEAR); BILIRUBIN,URINE NEGATIVE (NEGATIVE); COLOR,URINE YELLOW (YELLOW); GLUCOSE,URINE NEGATIVE (NEGATIVE); KETONES,URINE NEGATIVE (NEGATIVE); LEUKOCYTE ESTERASE,URINE NEGATIVE (NEGATIVE); NITRITE,URINE NEGATIVE (NEGATIVE); OCCULT BLOOD,URINE NEGATIVE (NEGATIVE); PROTEIN,URINE NEGATIVE (NEGATIVE); UROBILINOGEN,URINE 0.2 EU/dL (0.2-1.0)
[2025-02-10 09:00] LABS: BASOPHILS ABSOLUTE AUTO 0.07 K/uL (0.00-0.10); BASOPHILS PERCENT AUTO 0.9 % (0.1-1.3); EOSINOPHILS PERCENT AUTO 0.1 % (0.0-5.4); HEMATOCRIT 42.4 % (34.3-46.0); IMMATURE GRAN ABSOLUTE AUTO 0.04 K/uL (0.00-0.23); IMMATURE GRAN PERCENT AUTO 0.5 % (0.0-0.7); LYMPHOCYTES ABSOLUTE AUTO 1.12 K/uL (0.8-3.3); LYMPHOCYTES PERCENT AUTO 14.1 % (11.4-47.7); MEAN CORPUSCULAR VOLUME 93.8 fL (81.4-99.0); MONOCYTES ABSOLUTE AUTO 0.48 K/uL (0.20-0.90); NEUTROPHILS ABSOLUTE AUTO 6.22 K/uL (1.0-7.6); NEUTROPHILS PERCENT AUTO 78.4 % (40.0-78.1); PLATELET COUNT,PLT 200 K/uL (130-375); RED BLOOD CELL COUNT 4.52 M/uL (3.77-5.24); WHITE BLOOD CELL COUNT,WBC 7.9 K/uL (3.2-11.0)
[2025-02-10 09:06] LABS: AMORPHOUS SEDIMENT,URINE NOT SEEN; BACTERIA,URINE MODERATE; EPITHELIAL CELLS,URINE RARE; MUCUS,URINE NOT SEEN; RBC,URINE 0-5 (0-5); WBC,URINE 0-5 (0-5)
[2025-02-10 09:14] LABS: CALCIUM 9.5 mg/dL (8.5-10.1); CREATININE 0.8 mg/dL (0.6-1.0); EST CRCL DRUG DOSING (CG) 40.06 mL/min; POTASSIUM,K 3.7 mmol/L (3.6-5.2)
[2025-02-10 09:17] LABS: EOSINOPHILS ABSOLUTE AUTO 0.01 K/uL (0.00-0.40)
[2025-02-10 09:19] LABS: ANION GAP 13.7 mmol/L (5.0-14.0)
[2025-02-10] MEDS: Gadoteridol 279.3 MG/ML 10 ML SDV IVPUSH ONE (13:16)
[2025-02-10 15:09] VITALS: BP 124/73; PULSE 98
== END 2025-02-10 15:28 | disposition other institution (70) ==
LOC: JP.ED 06:55
DX: I48.91 Unspecified atrial fibrillation (principal); F03.92 Unspecified dementia, unspecified severity, with psychotic disturbance; E78.00 Pure hypercholesterolemia, unspecified; Z90.49 Acquired absence of other specified parts of digestive tract; Z88.8 Allergy status to other drugs, medicaments and biological substances; Z88.2 Allergy status to sulfonamides; Z79.82 Long term (current) use of aspirin; Z79.899 Other long term (current) drug therapy
CPT/HCPCS: 36415; 70553; 70553-26; 80048; 81001; 85025; 99284; 99285; A9579